=== PATIENT | female | born 1975 | race Caucasian/White ===

== ENCOUNTER 2019-02-16 07:20 | Emergency (ER) | payer OTHER ==
[2019-02-16 07:45] VITALS: BP 139/78
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
== END 2019-02-16 09:13 | disposition home or self-care (01) ==
LOC: UCCORT 07:20
DX: M23.91 Unspecified internal derangement of right knee (principal); Z88.0 Allergy status to penicillin
CPT/HCPCS: 99201; G0463